=== PATIENT | female | born 2000 | race Caucasian/White ===

== ENCOUNTER 2021-08-10 18:20 | Emergency (ER) | payer SELFPAY ==
[2021-08-10] MEDS ORDERED: Ketorolac Tromethamine 30 MG/ML VIAL ONE (20:25)
== END 2021-08-10 21:27 | disposition home or self-care (01) ==
LOC: ERS 18:20
DX: M54.2 Cervicalgia (principal); F17.290 Nicotine dependence, other tobacco product, uncomplicated; W17.89XA Other fall from one level to another, initial encounter
CPT/HCPCS: 70450; 72125; 96374; J1885

== ENCOUNTER 2021-09-12 10:34 | Outpatient (CLI) | payer MEDICAID, SELFPAY | END 2021-09-12 10:35 | disposition home or self-care (01) | LOC: TBSIIMAG 10:34 | PROVIDERS: ATTEND Neurological Surgery | DX: S16.1XXA Strain of muscle, fascia and tendon at neck level, initial encounter (principal); M54.2 Cervicalgia | CPT/HCPCS: 72040 ==